=== PATIENT | female | born 1975 ===

== ENCOUNTER 2022-05-30 05:44 | Day surgery (SDC) | payer OTHER ==
[~2022-05-30] VITALS: Ht 154.9 cm; Wt 77.1 kg
[2022-05-30] MEDS ORDERED: NAPR500T14 PO (12:03)
[2022-05-30] MEDS ORDERED: Tylenol #3 PO (12:03)
== END 2022-05-30 17:20 | disposition home or self-care (01) ==
LOC: CIR.AMB 05:44
PROVIDERS: ATTEND Obstetrics & Gynecology
DX: N83.292 Other ovarian cyst, left side (principal); R10.2 Pelvic and perineal pain; N81.11 Cystocele, midline; Z20.822 Contact with and (suspected) exposure to COVID-19